=== PATIENT | female | born 1995 | race Caucasian/White ===

== ENCOUNTER 2016-09-11 13:40 | Inpatient (IN) ==
--- NOTE | 2016-09-11 13:52 | Emergency Department Note ---
Disposition Clinical Impression: Suicidal ideation Disposition: Admitted As Inpatient Condition: Fair Referrals: NO,PCP [Primary Care Provider] - Time of Disposition: 16:25 Psych HPI - General Chief Complaint: UC Psych Stated Complaint: SI Time Seen by Provider: 09/11/16 13:43 Source: patient Mode of arrival: private vehicle Limitations: no limitations Nursing Notes Reviewed: Yes Vital Signs Reviewed: Yes - History of Present Illness HPI Narrative: Patient feels depressed and suicidal. She wrote letters to her left once yesterday. She had a plan to cut her wrists. She denies acute intoxication. She denies hallucinations. She has a history of depression. She denies physical complaints Pt complaint: suicidal ideation, feels depressed Onset (ago): day(s) Duration: constant History of similar episodes: Yes Improves with: none Worsens with: none Alleged intoxication: No Associated Psychiatric Symptoms: depression, suicidal ideation Traumatic symptoms: denies traumatic injury Treatments prior to arrival: none Self harm or harm to others: admits thoughts of self harm - Related Data Previous Rx's Medication Instructions Recorded Loratadine/Pseudophed (12 HR) 1 each PO BID #20 tab.er.12h 06/01/16 [Claritin D (12HR)] Mupirocin [Bactroban Oint] 1 appl TP BID #22 g 07/15/16 Sulfamethoxazole/Trimeth DS 1 each PO BID #20 tablet 07/15/16 [Bactrim DS] Ibuprofen [Motrin] 600 mg PO Q8HR PRN #10 tab 08/25/16 Allergies Allergy/AdvReac Type Severity Reaction Status Date / Time codeine Allergy Gastrointestinal Verified 09/11/16 13:51 Upset All systems ED: reviewed and negative except as stated. Constitutional: Reports: as per HPI Eyes: Reports: as per HPI ENT ED: Reports: as per HPI Cardiovascular: Reports: as per HPI Respiratory: Reports: as per HPI Gastrointestinal: Reports: as per HPI Genitourinary: Reports: as per HPI Musculoskeletal: Reports: as per HPI Integumentary: Reports: as per HPI Neurological: Reports: as per HPI Psychiatric: Reports: depression, suicidal thoughts Endocrine: Reports: as per HPI Hematological/Lymphatic: Reports: as per HPI Allergic/Immunologic: Reports: as per HPI Past Medical History - Past Medical History Source: patient Medical history: Reports: non-contributory, other (Overactive bladder) Surgical history: Reports: non-contributory Psychiatric history: Reports: no psych history PHYSICAL THERAPIST CLINIC DIRECTOR history: Reports: no PHYSICAL THERAPIST CLINIC DIRECTOR history - Social History Smoking Status: Never smoker Smokeless Tobacco Status: No Alcohol use: Reports: none Drug use: Reports: none Physical Exam teary - General Limitations: no limitations General appearance: alert - Head Head exam: atraumatic - Eye Eye exam: Present: normal appearance - ENT ENT exam: normal exam - Neck Neck exam: Present: normal inspection - Chest Chest inspection: Present: normal inspection, symmetric chest wall rise - Respiratory Respiratory exam: Present: normal lung sounds bilaterally - Cardiovascular Cardiovascular exam: Present: regular rate, normal rhythm, normal heart sounds - Rectal Exam Rectal exam: Present: deferred - Extremities Exam Extremities exam: Present: normal inspection - Neurological Exam Neurological exam: Present: alert, oriented X3, CN II-XII intact - Psychiatric Psychiatric exam: Present: depressed, flat affect - Skin Skin exam: Present: warm, dry, intact Course Course Narrative: Patient presents feeling depressed and suicidal. She has no physical complaints. I we will attempt to clear her medically for behavioral evaluation - Reevaluation(s) Reevaluation #1: cleared medically for behavioral eval Reevaluation #2: 1A accepts admission Vital Signs Temperature 98.4 F 09/11/16 13:51 Pulse Rate 72 09/11/16 13:51 Respiratory Rate 15 09/11/16 13:51 Blood Pressure 142/91 09/11/16 13:51 O2 Sat by Pulse Oximetry 98 09/11/16 13:51 Temperature 98.4 F 09/11/16 13:51 Pulse Rate 72 09/11/16 14:04 Respiratory Rate 15 09/11/16 14:04 Blood Pressure 142/91 09/11/16 14:04 O2 Sat by Pulse Oximetry 98 09/11/16 14:04 Oxygen Delivery Oxygen Delivery Room Air Psych - Lab Data Lab results reviewed: Yes I reviewed the patient's lab results. Result diagrams: 09/11/16 14:06 09/11/16 14:06 Lab Results 09/11/16 09/11/16 09/11/16 Range/Units 13:57 13:57 14:06 WBC 9.3 (4.3-11.1) K/mcL RBC 4.64 (3.82-4.97) M/mcL Hgb 13.1 (11.5-15.4) g/dL Hct 37.8 (35.3-44.9) % MCV 81.5 L (83.0-100.0) fL MCH 28.2 (28.0-33.3) pg MCHC 34.7 (31.6-35.5) g/dL RDW 12.4 (11.5-14.5) % Plt Count 300 (140-400) K/mcL MPV 9.3 L (9.4-12.4) fL Immature Gran % 0.3 (0-4) % Seg Neutrophils % 78.3 % Lymphocytes % 17.2 % Monocytes % 3.7 % Eosinophils % 0.2 % Basophils % 0.3 % Neutrophils # 7.3 (1.6-8.9) K/mcL Lymphocytes # 1.6 (0.6-4.6) K/mcL Monocytes # 0.3 (0.0-1.3) K/mcL Eosinophils # 0.0 (0.0-0.6) K/mcL Basophils # 0.0 (0.0-0.2) K/mcL Sodium (136-145) mEq/L Potassium (3.5-4.5) mEq/L Chloride (98-109) mEq/L Carbon Dioxide (19-29) mEq/L BUN (7-20) mg/dL Creatinine (0.57-1.11) mg/dL Est GFR ( Amer) (> 60) Est GFR (Non-Af Amer) (> 60) BUN/Creatinine Ratio (6-26) Glucose (70-99) mg/dL Calculated Osmolality (280-300) Calcium (8.6-10.8) mg/dL Urine Test Negative (Negative) Salicylates (15-30) mg/dL Urine Opiates Screen Negative (Nvsdef=514) ng/mL Acetaminophen (10-30) mcg/mL Ur Barbiturates Screen Negative (Irtvip=387) ng/mL Ur Phencyclidine Scrn Negative (Cutoff=25) ng/mL Ur Amphetamines Screen Negative (Ybrfyh=1803) ng/mL U Benzodiazepines Scrn Negative (Rprtil=617) ng/mL Urine Cocaine Screen Negative (Cutoff= 300) ng/mL U Marijuana (THC) Screen Negative (Cutoff = 50) ng/mL Ethyl Alcohol (0-10) mg/dL 09/11/16 Range/Units 14:06 WBC (4.3-11.1) K/mcL RBC (3.82-4.97) M/mcL Hgb (11.5-15.4) g/dL Hct (35.3-44.9) % MCV (83.0-100.0) fL MCH (28.0-33.3) pg MCHC (31.6-35.5) g/dL RDW (11.5-14.5) % Plt Count (140-400) K/mcL MPV (9.4-12.4) fL Immature Gran % (0-4) % Seg Neutrophils % % Lymphocytes % % Monocytes % % Eosinophils % % Basophils % % Neutrophils # (1.6-8.9) K/mcL Lymphocytes # (0.6-4.6) K/mcL Monocytes # (0.0-1.3) K/mcL Eosinophils # (0.0-0.6) K/mcL Basophils # (0.0-0.2) K/mcL Sodium 141 (136-145) mEq/L Potassium 3.7 (3.5-4.5) mEq/L Chloride 109 (98-109) mEq/L Carbon Dioxide 22 (19-29) mEq/L BUN 9 (7-20) mg/dL Creatinine 0.71 (0.57-1.11) mg/dL Est GFR ( Amer) > 60 (> 60) Est GFR (Non-Af Amer) > 60 (> 60) BUN/Creatinine Ratio 13 (6-26) Glucose 83 (70-99) mg/dL Calculated Osmolality 290 (280-300) Calcium 9.4 (8.6-10.8) mg/dL Urine Test (Negative) Salicylates < 5.0 L (15-30) mg/dL Urine Opiates Screen (Hrnbef=682) ng/mL Acetaminophen < 1.0 L (10-30) mcg/mL Ur Barbiturates Screen (Xebjii=798) ng/mL Ur Phencyclidine Scrn (Cutoff=25) ng/mL Ur Amphetamines Screen (Kaotcq=2087) ng/mL U Benzodiazepines Scrn (Ijcozs=951) ng/mL Urine Cocaine Screen (Cutoff= 300) ng/mL U Marijuana (THC) Screen (Cutoff = 50) ng/mL Ethyl Alcohol < 10 (0-10) mg/dL Psychiatric Medical Clearance - Medical Clearance Checklist Medical History: No Social History Section defined Current Vitals: Last Vital Signs Temp 98.4 F 09/11/16 13:51 Pulse 72 09/11/16 14:04 Resp 15 09/11/16 14:04 BP 142/91 09/11/16 14:04 Pulse Ox 98 09/11/16 14:04 Psychiatric Lab Panel: Drug Levels and Toxicity 09/11/16 09/11/16 13:57 14:06 Urine Opiates Screen Negative Acetaminophen < 1.0 L Ur Barbiturates Screen Negative Ur Phencyclidine Scrn Negative Ur Amphetamines Screen Negative U Benzodiazepines Scrn Negative Urine Cocaine Screen Negative U Marijuana (THC) Screen Negative Ethyl Alcohol < 10 Abnormal Labs: Abnormal lab results MCV 81.5 fL (83.0-100.0) L 09/11/16 14:06 MPV 9.3 fL (9.4-12.4) L 09/11/16 14:06 Salicylates < 5.0 mg/dL (15-30) L 09/11/16 14:06 Acetaminophen < 1.0 mcg/mL (10-30) L 09/11/16 14:06 Statement of Medical Clearance: I have evaluated the patient, reviewed diagnostic information, and certify that the patient's medical condition is sufficiently stable that transfer to the psychiatric unit does not pose a significant risk of deterioration.
[2016-09-11 14:14] LABS: Basophils % 0.3 %; Eosinophils % 0.2 %; Hematocrit 37.8 % (35.3-44.9); Hemoglobin 13.1 g/dL (11.5-15.4); Immature Granulocytes % 0.3 % (0-4); Lymphocytes # 1.6 K/mcL (0.6-4.6); Lymphocytes % 17.2 %; Mean Corpuscular HGB Conc 34.7 g/dL (31.6-35.5); Mean Corpuscular Hemoglobin 28.2 pg (28.0-33.3); Mean Corpuscular Volume 81.5 fL (83.0-100.0); Mean Platelet Volume 9.3 fL (9.4-12.4); Monocytes # 0.3 K/mcL (0.0-1.3); Monocytes % 3.7 %; Neutrophils # 7.3 K/mcL (1.6-8.9); Platelet Count 300 K/mcL (140-400); Red Blood Count 4.64 M/mcL (3.82-4.97); Red Cell Distribution Width 12.4 % (11.5-14.5); Segmented Neutrophils % 78.3 %
[2016-09-11 14:19] LABS: Amphetamine Screen,Urine Negative ng/mL (Cutoff=1000); Barbiturate Screen,Urine Negative ng/mL (Cutoff=200); Benzodiazepines Screen,Urine Negative ng/mL (Cutoff=200); Cannabinoid Screen,Urine Negative ng/mL (Cutoff = 50); Cocaine Screen,Urine Negative ng/mL (Cutoff= 300); Opiate Screen,Urine Negative ng/mL (Cutoff=300); Phencyclidine Screen,Urine Negative ng/mL (Cutoff=25)
[2016-09-11 14:25] LABS: BUN/Creatinine Ratio 13 (6-26); Blood Urea Nitrogen 9 mg/dL (7-20); Calcium 9.4 mg/dL (8.6-10.8); Carbon Dioxide 22 mEq/L (19-29); Chloride 109 mEq/L (98-109); Glucose 83 mg/dL (70-99); Osmolality,Calculated 290 (280-300); Potassium 3.7 mEq/L (3.5-4.5); Sodium 141 mEq/L (136-145); eGFR For African Americans > 60 (> 60); eGFR For Non-African Americans > 60 (> 60)
[2016-09-11 15:08] LABS: Ethanol < 10 mg/dL (0-10)
[2016-09-11 15:26] LABS: Acetaminophen < 1.0 mcg/mL (10-30); Salicylate < 5.0 mg/dL (15-30)
[2016-09-11] MEDS ORDERED: *HR* LORazepam 1 MG TABLET PO PRN (18:39)
[2016-09-11] MEDS ORDERED: *HR* LORazepam 2 MG/ML VIAL IM PRN (18:39)
[2016-09-11] MEDS ORDERED: MOM Conc 10 ML UD.LIQ PO PRN (18:39)
[2016-09-11] MEDS ORDERED: Mag Hydrox/Al Hydrox/Simeth 30 ML UDC PO PRN (18:39)
[2016-09-11] MEDS ORDERED: Haloperidol Lactate 5 MG/ML VIAL IM PRN (18:39)
[2016-09-11] MEDS: traZODone 50 MG TABLET PO PRN (20:34)
[2016-09-11] MEDS: Acetaminophen 325 MG TABLET PO PRN (20:34)
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
[2016-09-12] MEDS: Venlafaxine XR (24 HR) 75 MG CAP.ER.24H PO SCH (11:44)
[2016-09-12] MEDS: Acetaminophen 325 MG TABLET PO PRN ×2 (13:43→21:20)
[2016-09-12] MEDS: hydrOXYzine pamoate 25 MG CAPSULE PO PRN (20:03)
[2016-09-12] MEDS: traZODone 50 MG TABLET PO PRN (20:05)
[2016-09-13] MEDS: Venlafaxine XR (24 HR) 75 MG CAP.ER.24H PO SCH (08:42)
--- NOTE | 2016-09-13 13:11 | Psychiatry Progress Note ---
Date of Encounter: 09/13/16 Time of Encounter: 12:25 Subjective Interval history: Patient is seen today for follow-up of depression and anxiety symptoms. Notes reviewed and I discussed patient was staffed this morning in treatment team. Patient states that she continues to feel depressed and feels scared that she would hurt herself if she left the hospital. "I do not like the idea that if I went home I might hurt myself." She continues to report low mood, tearfulness, general sadness. She reports continued intermittent suicidal ideation without plan at this time. She knows that her boyfriend and dad are supportive of her and she is committed to getting help while she is here. She did notice some nausea when she tried the Effexor this morning but states when she went away. She reports that she slept a little bit better last night but still having some trouble with sleep. She also states that since coming here she has had some hesitancy in her urination. She does take oxybutynin because usually she goes to the bathroom frequently. Patient requests her medication be decreased to see if this will help. She denies auditory or visual hallucinations. Review of Systems Constitutional: Denies: fever, chills, weakness, weight change Eyes: Denies: eye pain, vision change Ears, Nose, Throat: Denies: ear pain, throat pain, dental pain, hearing loss, congestion Cardiovascular: Denies: chest pain, palpitations, dyspnea on exertion Respiratory: Denies: cough, dyspnea, wheezes Gastrointestinal: Denies: abdominal pain, nausea, vomiting, diarrhea, constipation Genitourinary female: Reports: other (Hesitancy) Musculoskeletal: Denies: joint swelling, joint pain Neurological: Denies: headache, weakness, numbness, memory loss Psychiatric: Reports: depression, anxiety, suicidal ideation, hopelessness, irritability Objective: Exam Patient orientation: Yes Person, Yes Time, Yes Place Level of alertness: Alert Patient appearance: Appropriate Behavior: cooperative, nervous Psychomotor activity: Slowed Eye contact: Minimal Contact Mood description: Depressed, Anxious Affect description: congruent with mood, dysphoric Speech pattern: Normal rate, Normal rhythm, Normal tone Speech volume: Soft/Quiet Thought process: Intact, Logical Thought content: Yes Suicidal ideation, No Homicidal ideation Perceptual disturbances: No Auditory hallucinations, No Visual hallucinations Judgment: Fair Insight: Partial Results - Vital Signs Vital Signs: Temp Pulse Resp BP Pulse Ox 98.6 F 79 16 109/54 98 09/13/16 08:38 09/13/16 08:38 09/13/16 08:38 09/13/16 08:38 09/11/16 14:04 Assessment and Plan (1) Major depressive disorder, recurrent severe without psychotic features Current visit: Yes Status: Acute Plan: Continue hospitalization, Close observation, Suicide Precautions per unit protocol, Encourage participation in unit milieu, Group Therapy, Monitor sleep, Monitor appetite Additional Plan: I have reviewed side effects, risks, benefits of medications with patient. We will increase trazodone to 100 mg by mouth daily at bedtime. Increase Effexor to 150 mg by mouth daily. Patient will monitor for further nausea or upset stomach. Encourage participation in unit activities. Encourage group participation. Risks, benefits, side effects, alternatives discussed w/pt: Yes Patient agreeable to treatment: Yes Consult Discharge Plan - Plan Referrals: [facility] [Outside] - 09/17/16 5:00 pm (The above appointment is with Viki for counseling.) Scottie Ding Jr, MD [Non-Partnered Physician] - 10/01/16 8:30 am (The above appointment is with Dr. Ding.)
[2016-09-13] MEDS: Acetaminophen 325 MG TABLET PO PRN (14:47)
[2016-09-13] MEDS: hydrOXYzine pamoate 25 MG CAPSULE PO PRN (20:46)
[2016-09-13] MEDS: traZODone 50 MG TABLET PO PRN (22:09)
[2016-09-14] MEDS: Venlafaxine XR (24 HR) 75 MG CAP.ER.24H PO SCH (09:15)
--- NOTE | 2016-09-14 10:54 | Psychiatry Progress Note ---
Date of Encounter: 09/14/16 Time of Encounter: 10:40 Subjective Interval history: Patient is seen today for follow-up of depression. She reports that she slept better with the increased dose of trazodone. She continues to have mood swings and feels depressed most of the time. She states that she does feel supported by her family and had good interaction with them yesterday. Patient states the Effexor did not cause nausea today when she took it with food. She tolerated the increased dose to 150 mg. We discussed some positive coping strategies and also different activities that patient could engage in while on the unit. She is intermittently having suicidal thoughts. She has suicidal thoughts last night as well as when she woke up this morning. Review of Systems Psychiatric: Reports: depression, anxiety, suicidal ideation, anhedonia, hopelessness, irritability. Denies: abnormal sleep pattern Objective: Exam Patient orientation: Yes Person, Yes Time, Yes Place Level of alertness: Alert Patient appearance: Appropriate, Well Groomed Behavior: calm, cooperative Psychomotor activity: Normal Eye contact: Minimal Contact Mood description: Depressed Affect description: congruent with mood, tearful, dysphoric Speech pattern: Normal rate, Normal rhythm, Normal tone Speech volume: Normal Thought process: Linear, Goal Oriented Thought content: Yes Suicidal ideation Perceptual disturbances: No Auditory hallucinations, No Visual hallucinations Judgment: Fair Insight: Partial Results - Vital Signs Vital Signs: Temp Pulse Resp BP Pulse Ox 98.6 F 68 16 103/54 98 09/14/16 09:00 09/14/16 09:00 09/14/16 09:00 09/14/16 09:00 09/11/16 14:04 Assessment and Plan (1) Major depressive disorder, recurrent severe without psychotic features Current visit: Yes Status: Acute Plan: Continue hospitalization, Close observation, Suicide Precautions per unit protocol, Encourage participation in unit milieu, Group Therapy, Monitor sleep, Monitor appetite Additional Plan: We will continue with current dosages of meds. Patient is sleeping better. No side effects of the venlafaxine as of yet. Encourage group attendance and interaction with peers and staff. Plan for discharge home when patient's suicidal ideation decreased and mood has improved. Risks, benefits, side effects, alternatives discussed w/pt: Yes Patient agreeable to treatment: Yes Consult Discharge Plan - Plan Referrals: [facility] [Outside] - 09/17/16 5:00 pm (The above appointment is with Viki for counseling.) Scottie Ding Jr, MD [Non-Partnered Physician] - 10/01/16 8:30 am (The above appointment is with Dr. Ding.)
[2016-09-14] MEDS: traZODone 50 MG TABLET PO PRN (21:53)
[2016-09-15] MEDS: Venlafaxine XR (24 HR) 75 MG CAP.ER.24H PO SCH (08:28)
[2016-09-15] MEDS: hydrOXYzine pamoate 25 MG CAPSULE PO PRN (09:58)
[2016-09-15 12:44] LABS: Bilirubin,Urine Negative (Negative); Blood,Urine Negative (Negative); Clarity,Urine Cloudy (Clear); Color,Urine Yellow (Yellow); Glucose,Urine (UA) Normal (Normal); Ketones,Urine Trace mg/dL (Negative); Leukocyte Esterase,Urine Negative (Negative); Nitrite,Urine Negative (Negative); PH,Urine 6.5 pH Units (5.0-8.0); Protein,Urine Negative (Neg-Trace); Specific Gravity,Urine > 1.030 (1.010-1.025); Urobilinogen,Urine Normal (Normal)
[2016-09-15 12:47] LABS: Bacteria,Urine Few per hpf (None-Few); Hyaline Casts,Urine None Seen per lpf (None-Few); Squamous Epithelial Cell,Urine Many per lpf (None-Few)
--- NOTE | 2016-09-15 13:15 | Psychiatry Progress Note ---
Date of Encounter: 09/15/16 Time of Encounter: 12:45 Subjective Interval history: Patient is seen for follow-up. She is tolerating the increase in Effexor dose. Reported improved sleep. Nursing report indicates no suicidal ideation. She is guarded in answering questions and most of her answers are ""do not know. Affect is restricted. Review of Systems Psychiatric: Reports: depression, anxiety, suicidal ideation, anhedonia, hopelessness, irritability. Denies: abnormal sleep pattern Objective: Exam Patient orientation: Yes Person, Yes Time, Yes Place Level of alertness: Alert Patient appearance: Appropriate, Well Groomed Behavior: calm, cooperative, guarded Psychomotor activity: Normal Eye contact: Maintains Eye Contact Mood description: Depressed, Anxious Affect description: congruent with mood, constricted Speech pattern: Normal rate, Normal rhythm, Normal tone Speech volume: Normal Thought process: Linear, Goal Oriented Thought content: No Suicidal ideation, No Homicidal ideation, No Overt delusions Perceptual disturbances: No Auditory hallucinations, No Visual hallucinations Judgment: Fair Insight: Partial Results - Vital Signs Vital Signs: Temp Pulse Resp BP Pulse Ox 98.6 F 74 16 111/64 98 09/15/16 08:48 09/15/16 08:48 09/15/16 08:48 09/15/16 08:48 09/11/16 14:04 - Labs Labs: Laboratory Results - last 24 hr 09/15/16 12:20 Urine Color Yellow Urine Clarity Cloudy A Urine pH 6.5 Ur Specific [place] > 1.030 H Urine Protein Negative Urine Glucose (UA) Normal Urine Ketones Trace H Urine Blood Negative Urine Nitrite Negative Urine Bilirubin Negative Urine Urobilinogen Normal Ur Leukocyte Esterase Negative Urine Microscopic RBC 3-5 H Urine Microscopic WBC 3-5 H Ur Squamous Epith Cells Many H Urine Bacteria Few Hyaline Casts None Seen Assessment and Plan (1) Depression with suicidal ideation Current visit: Yes Status: Acute Plan: Continue hospitalization, Close observation, Suicide Precautions per unit protocol, Encourage participation in unit milieu, Group Therapy, Monitor sleep, Monitor appetite Risks, benefits, side effects, alternatives discussed w/pt: Yes Patient agreeable to treatment: Yes Consult Discharge Plan - Plan Referrals: [facility] [Outside] - 09/17/16 5:00 pm (The above appointment is with Viki for counseling.) Scottie Ding Jr, MD [Non-Partnered Physician] - 10/01/16 8:30 am (The above appointment is with Dr. Ding.)
[2016-09-15] MEDS: traZODone 50 MG TABLET PO PRN (22:21)
[2016-09-16] MEDS: Venlafaxine XR (24 HR) 75 MG CAP.ER.24H PO SCH (08:37)
[2016-09-16 08:47] VITALS: BP 110/60
--- NOTE | 2016-09-16 10:41 | Discharge Summary ---
Date of Encounter: 09/16/16 Time of Encounter: 10:00 Diagnosis - Discharge Diagnosis (1) Depression with suicidal ideation Status: Acute Medications - Discharge Medications Prescriptions: traZODone [TraZODone] 100 mg PO HS #60 tablet Venlafaxine XR (24 HR) [Effexor XR] 150 mg PO DAILY #60 cap.er.24h Acetaminophen [Tylenol] 500 mg PO Q6HR PRN 09/11/16 [History] Oxybutynin Chloride 5 mg PO BID 09/11/16 [History] Venlafaxine XR (24 HR) [Effexor XR] 150 mg PO DAILY #60 cap.er.24h 09/16/16 [Rx] traZODone [TraZODone] 100 mg PO HS #60 tablet 09/16/16 [Rx] Allergies codeine Allergy (Verified 09/11/16 13:51) Gastrointestinal Upset Results Procedures and tests throughout hospitalization: Completed Lab Orders Category Date Time Status UA w. reflex microscopic [Urinalysis reflex Microscopic Lab 09/15/16 12:20 Completed ] [URIN] Stat Completed Microbiology Orders Category Date Time Status Culture,Urine [RM] Routine Lab 09/15/16 12:20 Completed Provider Date of admission: 09/11/16 16:41 Primary care physician: PCP NO Discharging clinician: Jacob Partida Assessment and Plan - Patient/Caregiver Discharge Instructions Activity: resume usual activities as tolerated Diet: regular diet - Follow up Plan Follow up with: [facility] [Outside] - 10/02/16 11:00 am (The above appointment is with Blanca for counseling.) Scottie Ding Jr, MD [Non-Partnered Physician] - 10/01/16 8:30 am (The above appointment is with Dr. Ding.) Functional capacity at discharge: independent ambulation Overall status at discharge: Stable Disposition: Home, Self-Care Hospital Course Hospital course: Ms. Davis is a 21 year old female admitted for treatment of depression and suicidal ideation. For details of the admission to see H&P. On the unit patient medication were reviewed she was started on Effexor SR 75 mg daily and was increased later to 150 mg. Patient was given trazodone 100 mg at bedtime. She responded well to medication her sleep improved her mood showed improvement energy level improved she was able to participate in group and activities she was interactive with other patients and staff and she denied any suicidal ideation hopelessness. Discharged planned were completed by hospice social worker including outpatient therapy and medication management. Prior to discharge patient was medically stable tolerated the medication without any side effects and look forward to make changes and add new activities like exercising and taking vacations. - Time Spent with Patient Total time spent providing and/or coordinating discharge services: Greater than 30 minutes Quality - Multiple Antipsychotics Patient discharged on 2 or more antipsychotic medications: No Procedures - Procedures Procedures: Medication Management, Crisis Stabilization, Supportive Therapy, Group Therapy, Psychoeducational Therapy Mental Status Exam - Mental Status Exam Patient orientation: Yes Person, Yes Time, Yes Place Level of alertness: Alert Patient appearance: Appropriate, Well Groomed, Average Behavior: calm, cooperative Psychomotor activity: Normal Eye contact: Maintains Eye Contact Mood description: Euthymic/stable Affect description: congruent with mood, full range Speech pattern: Normal rate, Normal rhythm, Normal tone Speech Volume: Normal Thought process: Linear, Goal Oriented Thought Content: No Suicidal ideation, No Homicidal ideation, No Overt delusions Perceptual Disturbances: No Auditory hallucinations, No Visual hallucinations Judgment: Limited Insight: Partial
[2016-09-16] MEDS: Acetaminophen 325 MG TABLET PO PRN (14:57)
== END 2016-09-16 17:00 | disposition home or self-care (01) | DRG 885 ==
LOC: EMEROO 13:40 → 1ANU 16:41 → SUATTDRO 16:41 → 1ANU 17:12
PROVIDERS: ADMIT Psychiatry & Neurology Psychiatry; ATTEND Psychiatry & Neurology Psychiatry

== ENCOUNTER 2021-12-06 00:12 | Inpatient (IN) ==
[2021-12-06 00:55] LABS: Basophils % 0.4 %; Eosinophils # 0.1 K/mcL (0.0-0.6); Eosinophils % 0.8 %; Hematocrit 39.7 % (35.3-44.9); Hemoglobin 13.2 g/dL (11.5-15.4); Immature Granulocytes % 0.2 % (0-4); Lymphocytes # 2.9 K/mcL (0.6-4.6); Lymphocytes % 30.3 %; Mean Corpuscular HGB Conc 33.2 g/dL (31.6-35.5); Mean Corpuscular Hemoglobin 26.2 pg (28.0-33.3); Mean Corpuscular Volume 78.9 fL (83.0-100.0); Monocytes # 0.5 K/mcL (0.0-1.3); Monocytes % 5.2 %; Platelet Count 346 K/mcL (140-400); Red Blood Count 5.03 M/mcL (3.82-4.97); Red Cell Distribution Width 13.7 % (11.5-14.5); Segmented Neutrophils % 63.1 %; White Blood Count 9.5 K/mcL (4.3-11.1)
[2021-12-06 00:55] LABS: Bilirubin,Urine Negative (Negative); Blood,Urine Negative (Negative); Clarity,Urine Clear (Clear); Color,Urine Light-Yellow (Yellow); Glucose,Urine (UA) Normal (Normal); Ketones,Urine Negative (Negative); Leukocyte Esterase,Urine Negative (Negative); Nitrite,Urine Negative (Negative); Protein,Urine Negative (Neg-Trace); Specific Gravity,Urine 1.024 (1.010-1.025); Urobilinogen,Urine Normal (Normal)
[2021-12-06 01:02] LABS: Acetaminophen < 10 mcg/mL (10-20); BUN/Creatinine Ratio 14 (6-26); Blood Urea Nitrogen 10 mg/dL (6-20); Calcium 9.3 mg/dL (8.6-10.3); Carbon Dioxide 22 mEq/L (23-29); Chloride 109 mEq/L (98-107); Ethanol < 10 mg/dL (Less than 10); Glucose 106 mg/dL (70-105); Osmolality,Calculated 285 (280-300); Salicylate < 2.5 mg/dL (15.0-30.0); Sodium 138 mEq/L (136-145)
[2021-12-06] MEDS ORDERED: Neosporin OINT 1 APPL PACKET TP ONE (01:02)
[2021-12-06 01:07] LABS: Amphetamine Screen,Urine Negative ng/mL (Cutoff=1000); Barbiturate Screen,Urine Negative ng/mL (Cutoff=200); Benzodiazepines Screen,Urine Negative ng/mL (Cutoff=200); Cannabinoid Screen,Urine Negative ng/mL (Cutoff = 50); Cocaine Screen,Urine Negative ng/mL (Cutoff= 300); Opiate Screen,Urine Negative ng/mL (Cutoff=300); Phencyclidine Screen,Urine Negative ng/mL (Cutoff=25)
[2021-12-06 01:24] LABS: Influenza A PCR Negative (Negative); Influenza B PCR Negative (Negative); Resp. Syncytial Virus PCR Negative (Negative)
[2021-12-06 01:32] LABS: SARS-CoV-2 by PCR (In House) Negative (Negative)
[2021-12-06] MEDS ORDERED: Tdap (Boostrix) Vaccine 0.5 ML SYRINGE IM ONE (02:18)
[2021-12-06] MEDS ORDERED: Acetaminophen 325 MG TABLET PO ONE (02:18)
[2021-12-06] MEDS ORDERED: *HR* LORazepam 2 MG/ML VIAL IM PRN (02:42)
[2021-12-06] MEDS ORDERED: Haloperidol Lactate 5 MG/ML VIAL IM PRN (02:42)
[2021-12-06] MEDS ORDERED: Acetaminophen 325 MG TABLET PO PRN (02:42)
[2021-12-06] MEDS ORDERED: hydrOXYzine pamoate 25 MG CAPSULE PO PRN (02:42)
[2021-12-06] MEDS ORDERED: haloperidoL 5 MG TABLET PO PRN (02:58)
[2021-12-06] MEDS ORDERED: *HR* LORazepam 1 MG TABLET PO PRN (02:59)
[2021-12-06] MEDS ORDERED: Mag Hydrox/Al Hydrox/Simeth 30 ML UDC PO PRN (08:06)
[2021-12-06] MEDS ORDERED: MOM Conc 10 ML UD.LIQ PO PRN (08:06)
[2021-12-06] MEDS: Venlafaxine XR (24 HR) 37.5 MG CAP.ER.24H PO SCH (12:39)
[2021-12-06] MEDS: Ibuprofen 400 MG TABLET PO PRN (16:26)
[2021-12-06] MEDS: traZODone 50 MG TABLET PO PRN (21:17)
[2021-12-07] MEDS: Venlafaxine XR (24 HR) 37.5 MG CAP.ER.24H PO SCH (08:25)
[2021-12-07] MEDS: traZODone 50 MG TABLET PO PRN (21:53)
[2021-12-08] MEDS: Ibuprofen 400 MG TABLET PO PRN (07:44)
[2021-12-08] MEDS: Venlafaxine XR (24 HR) 75 MG CAP.ER.24H PO SCH (09:09)
[2021-12-08] MEDS: Cefdinir 300 MG CAPSULE PO SCH ×2 (09:46→22:04)
[2021-12-08] MEDS: Neosporin OINT 15 GM TUBE TP SCH ×3 (11:05→22:06)
[2021-12-08] MEDS: traZODone 50 MG TABLET PO PRN (22:04)
[2021-12-09] MEDS: Ibuprofen 400 MG TABLET PO PRN (05:52)
[2021-12-09] MEDS: Cefdinir 300 MG CAPSULE PO SCH ×2 (08:30→21:56)
[2021-12-09] MEDS: Venlafaxine XR (24 HR) 75 MG CAP.ER.24H PO SCH (08:30)
[2021-12-09] MEDS: Neosporin OINT 15 GM TUBE TP SCH ×3 (08:31→21:56)
[2021-12-09] MEDS: Ibuprofen 800 MG TABLET PO PRN ×2 (14:23→22:40)
[2021-12-09 20:41] VITALS: TEMP 97.4; O2SAT 98
[2021-12-09] MEDS: traZODone 50 MG TABLET PO PRN (22:40)
[2021-12-10] MEDS: Cefdinir 300 MG CAPSULE PO SCH (08:34)
[2021-12-10] MEDS: Ibuprofen 800 MG TABLET PO PRN (08:34)
[2021-12-10] MEDS: Neosporin OINT 15 GM TUBE TP SCH (08:35)
[2021-12-10] MEDS ORDERED: Venlafaxine XR (24 HR) 150 MG CAP.ER.24H PO SCH (09:00)
[2021-12-10 09:52] VITALS: BP 127/75; PULSE 73
== END 2021-12-10 11:05 | disposition home or self-care (01) | DRG 751 ==
LOC: EMEROOARM 00:12 → 1ANU 03:00
PROVIDERS: ADMIT Psychiatry & Neurology Psychiatry; ATTEND Psychiatry & Neurology Psychiatry